=== PATIENT | male | born 1970 | race African-American/Black ===

== ENCOUNTER 2022-05-31 10:16 | Emergency (ER) | payer SELFPAY ==
[2022-05-31] MEDS ORDERED: TETANUS,DIPH,PERTUSS(ACELL) VACCINE 0.5 ML SYRINGE IM ONE (10:55)
--- NOTE | 2022-05-31 11:00 | Emergency Department Report ---
ED Lower Extremity HPI - General Chief Complaint: Pain General Stated Complaint: LEFT FOOT PAIN/STEPPED ON NAIL Time Seen by Provider: 05/31/22 10:34 Source: patient Mode of arrival: Ambulatory Limitations: No Limitations - History of Present Illness Initial Comments: This is a 52-year-old male that presents to the emergency room with left heel pain. Patient states he stepped on a nail 3 days ago. Patient states he was able to pull the entire nail out but continues to feel pain with weight weightbearing. Patient states he noticed a large amount of bleeding which resolved shortly after. He cleaned area with soap and water. Patient states he cannot remember his last tetanus vaccine. Patient denies numbness tingling, swelling, bruising, or weakness. MD Complaint: foot injury Onset/Timin -: days(s) Injury: Foot: Left (heel) Type of Injury: puncture wound Place: home Severity: moderate Severity scale (0 -10): 5 Worsens With: weight bearing - Related Data Previous Rx's Medication Instructions Recorded Last Taken Type traMADoL [Ultram] 50 mg PO Q4HR PRN #20 tablet 12/07/15 Unknown Rx Ibuprofen [Motrin] 800 mg PO Q8HR PRN #20 tablet 10/02/16 Unknown Rx Allergies Allergy/AdvReac Type Severity Reaction Status Date / Time No Known Allergies Allergy Unverified 12/07/15 10:55 ED Review of Systems ROS: Stated complaint: LEFT FOOT PAIN/STEPPED ON NAIL Other details as noted in HPI Constitutional: denies: chills, fever Respiratory: denies: cough, shortness of breath, wheezing Cardiovascular: denies: chest pain, palpitations Musculoskeletal: arthralgia Neurological: denies: headache, weakness, paresthesias Psychiatric: denies: anxiety, depression ED Past Medical Hx - Past Medical History Previous Medical History?: No - Surgical History Past Surgical History?: No - Social History Smoking Status: Never Smoker - Medications Home Medications: Home Medications Medication Instructions Recorded Confirmed Last Taken Type traMADoL [Ultram] 50 mg PO Q4HR PRN #20 tablet 12/07/15 Unknown Rx Ibuprofen [Motrin] 800 mg PO Q8HR PRN #20 tablet 10/02/16 Unknown Rx ED Physical Exam - General Limitations: No Limitations General appearance: alert, in no apparent distress - Respiratory Respiratory exam: Present: normal lung sounds bilaterally. Absent: respiratory distress - Cardiovascular Cardiovascular Exam: Present: regular rate, normal rhythm. Absent: systolic murmur, diastolic murmur, rubs, gallop - Expanded Lower Extremity Exam Left Knee exam: Present: normal inspection, full ROM Lower Leg exam: Present: normal inspection, full ROM Ankle exam: Present: normal inspection, full ROM Foot/Toe exam: Present: normal inspection, full ROM, tenderness (Distal dorsal calculus). Absent: swelling, abrasion, ecchymosis, erythema, puncture wound, foreign body, tenderness at base of 5th metatarsal Neuro vascular tendon exam: Present: no vascular compromise Gait: Positive: observed and normal - Neurological Exam Neurological exam: Present: alert, oriented X3, normal gait - Psychiatric Psychiatric exam: Present: normal affect, normal mood - Skin Skin exam: Present: warm, dry, intact, normal color. Absent: rash ED Course Vital Signs 05/31/22 05/31/22 10:31 11:05 Temperature 98.9 F 98.6 F Pulse Rate 85 88 Respiratory 15 16 Rate Blood Pressure 106/72 Blood Pressure 148/94 [Right] O2 Sat by Pulse 96 100 Oximetry ED Lower Extremity MDM - Medical Decision Making Patient was examined by me. Patient is nontoxic appearing and stable. Vitals are normal. Given history, exam, and work-up, there is low suspicion for fracture or compartment syndrome. Tetanus not up-to-date. Given Tdap. Patient instructed of symptoms being a self-limiting. They have been given strict return her precautions for delayed possible symptoms. Patient discharged with prompt follow-up with primary care physician. Critical care attestation.: If time is entered above; I have spent that time in minutes in the direct care of this critically ill patient, excluding procedure time. ED Disposition Clinical Impression: Puncture wound of foot, left Qualifiers: Encounter type: initial encounter Qualified Code(s): S91.332A - Puncture wound without foreign body, left foot, initial encounter Disposition: HOME / SELF CARE / HOMELESS Is pt being admited?: No Condition: Stable Instructions: Puncture Wound Referrals: CHAS MCCULLOUGH MD [Staff Physician] - 3-5 Days Forms: Work/School Release Form(ED) Time of Disposition: 11:09
[2022-05-31 11:34] VITALS: BP 148/94
== END 2022-05-31 11:34 | disposition home or self-care (01) ==
LOC: ED 10:16
DX: S91.332A Puncture wound without foreign body, left foot, initial encounter (principal); W22.8XXA Striking against or struck by other objects, initial encounter; Y93.89 Activity, other specified; Y92.89 Other specified places as the place of occurrence of the external cause; Y99.8 Other external cause status
CPT/HCPCS: 90471; 90715; 99282